=== PATIENT | female | born 2000 | race Caucasian/White ===

== ENCOUNTER 2022-12-07 04:30 | Observation (INO) | payer SELFPAY | END 2022-12-07 06:22 | disposition home or self-care (01) | LOC: SPU 04:30 | PROVIDERS: ADMIT Obstetrics & Gynecology; ATTEND Obstetrics & Gynecology | DX: O62.9 Abnormality of forces of labor, unspecified (principal); Z3A.33 33 weeks gestation of pregnancy | CPT/HCPCS: G0378 ==